=== PATIENT | male | born 1950 | race African-American/Black ===

== ENCOUNTER 2016-08-14 06:19 | Inpatient (IN) | payer BC ==
[~2016-08-14 06:19] MED LIST: Buffered Lidocaine 1% SYRIN* 3 ML/SYR SYRINGE INTRADERM ONE; Famotidine IV* 10 MG/ML 2 ML (20 mg) IV ONE; Famotidine IV* 10 MG/ML 2 ML (20 mg) ONE; Metoclopramide TAB* 10 MG ONE; Metoclopramide TAB* 10 MG PO ONE; ceFAZolin 2 GM PREMIX(*) 2 GM/50 ML BAG IVPB ONE
[2016-08-14] MEDS ORDERED: fentaNYL* 50 MCG/ML 2 ML VIAL (100 MCG VIAL) ONE ×2 (07:20→10:22)
[2016-08-14] MEDS ORDERED: Dexamethasone IV* 4 MG/ML 1 ML (4 MG) ONE (07:20)
[2016-08-14] MEDS ORDERED: Cisatracurium* 2 MG/ML MDV 5 ML ONE (07:20)
[2016-08-14] MEDS ORDERED: KETAMINE HCL* 50 MG/ML 10 ML VIAL ONE (07:20)
[2016-08-14] MEDS ORDERED: Ondansetron INJ* 2 MG/ML VIAL ONE (07:20)
[2016-08-14] MEDS ORDERED: Lidocaine 2% PF* 5 ML VIAL ONE (07:20)
[2016-08-14] MEDS ORDERED: Propofol* 10 MG/ML 20 ML BTL IV PUSH ONE (07:20)
[2016-08-14] MEDS ORDERED: Midazolam* 1 MG/ML 5 ML VIAL (5 MG) ONE (07:21)
[2016-08-14] MEDS ORDERED: Bacitracin IV* 50,000 UNITS INJ ONE (07:22)
[2016-08-14] MEDS ORDERED: Lidocain 1% EPI 1:100,000 * 30 ML MDV ONE (07:22)
[2016-08-14] MEDS ORDERED: Thrombin 5,000 UNITS* 1 APPLIC KIT - topical use - TOPICAL ONE (07:22)
[2016-08-14] MEDS ORDERED: Artificial Tear OPHTH.OINT* 3.5 GM ONE (07:24)
[2016-08-14] MEDS ORDERED: EPHEDrine (Pressors)* 50 MG/ML VIAL ONE (08:09)
[2016-08-14] MEDS ORDERED: Phenylephrine INJ* 10 MG/ML 1 ML VIAL (10 MG) ONE (08:14)
[2016-08-14] MEDS ORDERED: Acetaminophen IV 1GM/100ML * 100 ML IVPB ONE (08:49)
[2016-08-14] MEDS ORDERED: fentaNYL* 50 MCG/ML 2 ML VIAL (100 MCG VIAL) IV PRN (08:49)
[2016-08-14] MEDS ORDERED: HYDROmorphone* 1 MG/ML 1 ML SYR IV PRN (08:49)
[2016-08-14] MEDS ORDERED: Ondansetron INJ* 2 MG/ML VIAL IV PRN ×2 (08:49→09:13)
[2016-08-14] MEDS ORDERED: HYDROcodone/ACETAMIN 5-325 MG* 1 TAB PO PRN (09:13)
[2016-08-14] MEDS ORDERED: Magnesium Hydroxide LIQ* 30 ML UDC PO PRN (09:13)
[2016-08-14] MEDS ORDERED: Morphine INJ* 4 MG/ML 1 ML SYRINGE IV PRN (09:15)
[2016-08-14] MEDS ORDERED: Cyclobenzaprine TAB* 10 MG PO PRN (09:16)
[2016-08-14] MEDS ORDERED: Acetaminophen IV 1GM/100ML * 100 ML ONE (09:24)
[2016-08-14] MEDS: Losartan TAB* 25 MG PO SCH (12:40)
[2016-08-14] MEDS ORDERED: Acetaminophen TAB* 325 MG PO PRN (14:00)
[2016-08-14] MEDS: HYDROcodone/ACETAMIN 5-325 MG* 1 TAB PO PRN ×2 (14:22→20:45)
[2016-08-14] MEDS: CMC:Simvastatin TAB(NF) 10 MG TAB PO SCH (20:45)
[2016-08-15] MEDS: HYDROcodone/ACETAMIN 5-325 MG* 1 TAB PO PRN ×5 (02:11→21:32)
--- NOTE | 2016-08-15 07:54 | PN ---
Progress Note - Progress Note SOAP: Subjective: [This is a 66 year old male s/p posterior cervical decompression C3-7, POD #1. He states that he is feeling well although has incisional pain. Pre-operative symptoms are improving. He is eating and drinking without difficulty. He has been up out of bed to ambulate yesterday. Denies nausea and headache.] Objective: [ Vital Signs: Temp Pulse Resp BP Pulse Ox 98.2 F 70 16 120/69 98 08/15/16 04:08 08/15/16 04:08 08/15/16 04:08 08/15/16 04:08 08/15/16 04:08 General: Alert and oriented. No distress. Neuro: Motor and sensory intact. Incision: Intact with hal. No swelling. VINCENZO in place and draining. Drain output 08/14/16 08/14/16 08/14/16 11:00 15:15 19:00 Output, VINCENZO #1 10 80 50 08/14/16 08/15/16 08/15/16 22:40 02:11 05:24 Output, VINCENZO #1 20 5 20 ] Assessment: [Satisfactory post-op. VINCENZO drain requires further monitoring due to continued collection.] Plan: [1. Admit to inpatient for continued monitoring of VINCENZO output. 2. Continue pain management as needed. 3. Encourage ambulation throughout day.]
[2016-08-15] MEDS: Losartan TAB* 25 MG PO SCH (07:55)
[2016-08-15] MEDS: amLODIPine TAB* 5 MG PO SCH (07:55)
[2016-08-15] MEDS: Chlorthalidone TAB* 50 MG PO SCH (07:55)
[2016-08-15] MEDS: Metoprolol Succinate XL TAB* 50 MG PO SCH (07:56)
[2016-08-15] MEDS: CMC:Simvastatin TAB(NF) 10 MG TAB PO SCH (21:32)
[2016-08-16] MEDS: HYDROcodone/ACETAMIN 5-325 MG* 1 TAB PO PRN ×3 (01:32→09:34)
[2016-08-16 07:38] VITALS: BP 129/76
--- NOTE | 2016-08-16 09:17 | PN ---
Progress Note - Progress Note SOAP: Subjective: [This is a 66 year old male s/p posterior cervical decompression POD#2. He is feeling well this morning, complains of incisional neck pain and muscle tightness. He is eating and drinking without difficulty and ambulating independently. He denies headache, chest pain and nausea. ] Objective: [ Vital Signs: Temp Pulse Resp BP Pulse Ox 98.9 F 73 16 129/76 94 08/16/16 07:22 08/16/16 07:22 08/16/16 08:00 08/16/16 07:22 08/16/16 07:22 General: Alert and oriented. No distress. Neuro: Motor and sensory intact. Incision: Intact with hal. Muscle tightness surrounding incision. VINCENZO removed today. VINCENZO drain output 08/14/16 08/14/16 08/14/16 11:00 15:15 19:00 Output, VINCENZO #1 10 80 50 08/14/16 08/15/16 08/15/16 22:40 02:11 05:24 Output, VINCENZO #1 20 5 20 08/15/16 08/15/16 08/15/16 10:00 14:00 15:59 Output, VINCENZO #1 30 15 15 08/15/16 08/16/16 08/16/16 22:23 03:47 05:52 Output, VINCENZO #1 20 5 5 ] Assessment: [Satisfactory post-op. Pain is well controlled with oral pain medications. All questions and concerns addressed. ] Plan: [1. Discharge home today. 2. Discharge instructions including wound care and activity level discussed with the patient. ]
[2016-08-16] MEDS: Losartan TAB* 25 MG PO SCH (09:33)
[2016-08-16] MEDS: Chlorthalidone TAB* 50 MG PO SCH (09:33)
[2016-08-16] MEDS: Metoprolol Succinate XL TAB* 50 MG PO SCH (09:34)
[2016-08-16] MEDS: amLODIPine TAB* 5 MG PO SCH (09:34)
--- NOTE | 2016-08-17 14:29 | OP ---
DATE OF OPERATION: 08/14/16 - ROOM #347 DATE OF : 48 SURGEON: Prashant Little MD HAIR DRESSER: JAMAL Rivera ANESTHESIOLOGIST: Satnam Dai MD ANESTHESIA: General. PRE-OP DIAGNOSIS: Cervical spondylosis with myelopathy, C3-C7. POST-OP DIAGNOSIS: Cervical spondylosis with myelopathy, C3-C7. OPERATIVE PROCEDURE: Posterior cervical decompressive laminectomy, C3-C7. DESCRIPTION OF PROCEDURE: After satisfactory general anesthesia was obtained, the patient was placed on the operating table in a prone position with the chest supported on the chest rolls and the head maintained with slight neck flexion utilizing the Thompson headrest. The cervical region was then clipped, prepped and draped in a sterile manner for generous cervical exposure. The skin incision was outlined beginning at C2 and extended down to T1. This incision was infiltrated with 1% Xylocaine with epinephrine after which it was turned down sharply to the level of the cervical fascia. The fascia was divided along the spinous processes from C2 to C7 and the paraspinal musculature was stripped away from these posterior elements using the periosteal elevator and monopolar cautery. The prominent C2 spinous process was identified after which spinous processes of C3, C4. C5, C6 and the superior aspect of the spinous processes of C7 were removed with a Leksell rongeur. A decompression was then begun starting at the inferior aspect of the C3 lamina which was removed with Kerrison's rongeurs. This was carried superiorly until the entire posterior elements of C3 had been removed. A Midas Roscoe drill was then used to thin out the remaining portion of the base of the spinous process and lamina of C4 after which it was removed with the Kerrison as well. There was no remarked compromise especially out laterally by spondylosis. In a similar manner, the C5 and C6 posterior elements were removed as well as the most superior half of the C7 lamina. At the conclusion of the decompression, the dura was noted to be quite pulsatile. Hemostasis was obtained with temporary Gelfoam, after which Gelfoam was placed over the laminectomy defect. A drain was placed in the epidural space and tunneled out toward the left side. The fascia was then reapproximated with 0 Vicryl suture. The subcutaneous tissue closed with 3-0 Vicryl suture and the skin closed with skin clips. The estimated blood loss was less than 50 cc and final sponge, pad and needle counts were correct. The patient was taken to the recovery room, extubated and in stable condition. [id number]/[facility] #: [id number] CALLI
== END 2016-08-16 10:08 | disposition home or self-care (01) | DRG 310 ==
LOC: OR 06:19 → SSU 07:40 → OBSVTOIN 08-15 07:40
PROVIDERS: ADMIT Neurological Surgery; ATTEND Neurological Surgery
PROC: 00NW0ZZ Release Cervical Spinal Cord, Open Approach (ICD-10-PCS; principal; 2016-08-14 07:45)
DX: M47.12 Other spondylosis with myelopathy, cervical region (principal); I10 Essential (primary) hypertension; Z87.440 Personal history of urinary (tract) infections; E78.5 Hyperlipidemia, unspecified; M54.16 Radiculopathy, lumbar region
CPT/HCPCS: A9270-GY; J0690; J1100; J2250; J2405; J2704; J3010

== ENCOUNTER 2017-12-30 07:07 | Day surgery (SDC) | payer BC ==
[~2017-12-30 07:07] MED LIST changes: +Acetaminophen TAB* 325 MG PO PRN; +Buffered Lidocaine 0.9% SYRIN* 5 ML/SYR SYRINGE INTRADERM ONE; -Buffered Lidocaine 1% SYRIN* 3 ML/SYR SYRINGE INTRADERM ONE; -Famotidine IV* 10 MG/ML 2 ML (20 mg) IV ONE; -Famotidine IV* 10 MG/ML 2 ML (20 mg) ONE; -Metoclopramide TAB* 10 MG ONE; -Metoclopramide TAB* 10 MG PO ONE; -ceFAZolin 2 GM PREMIX(*) 2 GM/50 ML BAG IVPB ONE
[2017-12-30] MEDS ORDERED: Midazolam* 1 MG/ML 2 ML VIAL (2 MG) ONE (08:24)
[2017-12-30 09:39] VITALS: BP 138/75
[2017-12-30] MEDS ORDERED: Cyclopentolate 1% OPTH.SOL* 2 ML BTL ONE (14:41)
[2017-12-30] MEDS ORDERED: Povidone Iodine 5% OPTH* 30 ML BTL ONE (14:41)
[2017-12-30] MEDS ORDERED: acetaZOLAMIDE TAB* 250 MG ONE (14:41)
[2017-12-30] MEDS ORDERED: Ketorolac 0.5% OPHTH (NF) 0.5 % 5 ML BTL ONE (14:41)
[2017-12-30] MEDS ORDERED: Phenylephrine 2.5% OPTH.SOL* 2 ML BTL ONE (14:41)
[2017-12-30] MEDS ORDERED: Lidocaine 1%* 5 ML VIAL ONE (14:41)
[2017-12-30] MEDS ORDERED: Lidocaine 2% EPI 1:200000 MPF*10-20 ML VIAL ONE (14:41)
[2017-12-30] MEDS ORDERED: Proparacaine 0.5% OPHTH.SOL* 15 ML BTL ONE (14:41)
[2017-12-30] MEDS ORDERED: Neomycin/Polymy/Dex OPTH.SUSP* MAXITROL 0.1% 5 ML ONE (14:41)
--- NOTE | 2017-12-30 17:10 | OP ---
OPERATIVE NOTE: DATE OF OPERATION: 12/30/17 - [facility] DATE OF : 48 SURGEON: Ortiz Shields M.D. PREOPERATIVE DIAGNOSIS: Cataract, right eye. POSTOPERATIVE DIAGNOSIS: Cataract, right eye. OPERATIVE PROCEDURE: Extracapsular cataract extraction with intraocular lens implant right eye. PROCEDURE: The patient was brought to the operating room after being given 1/2 % Alcaine with epinephrine drops in the preoperative area. The eye was prepped and draped in the usual sterile fashion. Sterile drape and eyelid speculum were placed. Again, topical 1/2% Alcaine with epinephrine was given. A paracentesis incision was made at the 9 o'clock position with the No. 75 blade. Clear cornea incision 2.2 x 2.2-mm was created at the 12 o'clock position starting at the anterior limbus using the 2.2-mm keratome. The anterior chamber was irrigated with 0.4 mL of 1% non-preservative intracameral lidocaine and filled with DisCoVisc. A capsulorrhexis was completed using the cystotome and the Utrata forceps. Hydrodissection was performed with balanced salt solution. The lens nucleus was removed with the Phacoemulsification handpiece without incident. Cortex was removed with the irrigation-aspiration handpiece. The capsular bag was re-inflated using DisCoVisc and an SN60WF 21.0 inserted with the shooter. The irrigation- aspiration handpiece was used to remove all residual DisCoVisc. The eye was refilled with balanced salt solution and the wound checked and found to be watertight. Topical Maxitrol drops were given. [id number]/[facility] #: [id number] [facility]
== END 2017-12-30 10:04 | disposition home or self-care (01) ==
LOC: OREAST 07:07
PROVIDERS: ATTEND Specialist
DX: H25.811 Combined forms of age-related cataract, right eye (principal); H43.813 Vitreous degeneration, bilateral; I10 Essential (primary) hypertension; E78.00 Pure hypercholesterolemia, unspecified
CPT/HCPCS: A9270-GY; J2250; V2632

== ENCOUNTER 2018-01-06 06:53 | Day surgery (SDC) | payer BC ==
[2018-01-06] MEDS ORDERED: Midazolam* 1 MG/ML 2 ML VIAL (2 MG) ONE (08:18)
[2018-01-06] MEDS ORDERED: Phenylephrine 2.5% OPTH.SOL* 2 ML BTL ONE (08:19)
[2018-01-06] MEDS ORDERED: Lidocaine 1%* 5 ML VIAL ONE (08:19)
[2018-01-06] MEDS ORDERED: Povidone Iodine 5% OPTH* 30 ML BTL ONE (08:19)
[2018-01-06] MEDS ORDERED: acetaZOLAMIDE TAB* 250 MG ONE (08:19)
[2018-01-06] MEDS ORDERED: Proparacaine 0.5% OPHTH.SOL* 15 ML BTL ONE (08:19)
[2018-01-06] MEDS ORDERED: Lidocaine 2% EPI 1:200000 MPF*10-20 ML VIAL ONE (08:19)
[2018-01-06] MEDS ORDERED: Cyclopentolate 1% OPTH.SOL* 2 ML BTL ONE (08:19)
[2018-01-06] MEDS ORDERED: Ketorolac 0.5% OPHTH (NF) 0.5 % 5 ML BTL ONE (08:19)
[2018-01-06] MEDS ORDERED: Neomycin/Polymy/Dex OPTH.SUSP* MAXITROL 0.1% 5 ML ONE (08:19)
[2018-01-06 08:59] VITALS: BP 134/82
--- NOTE | 2018-01-06 11:19 | OP ---
OPERATIVE NOTE: DATE OF OPERATION: 01/06/18 DATE OF : 48 SURGEON: Ortiz Shields MD. PREOPERATIVE DIAGNOSIS: Cataract, left eye. POSTOPERATIVE DIAGNOSIS: Cataract, left eye. OPERATIVE PROCEDURE: Extracapsular cataract extraction with intraocular lens implant, left eye. PROCEDURE: The patient was brought to the operating room after being given 1/2% Alcaine with epineph rine drops in the preoperative area. The eye was prepped and draped in the usual sterile fashion. S terile drape and eyelid speculum were placed. Again, topical 1/2% Alcaine with epinephrine was given . A paracentesis incision was made at the 3 o'clock position with the No.75 blade. Clear cornea inc ision 2.2 x 2.2-mm was created at the 6 o'clock position starting at the anterior limbus using the 2. 2-mm keratome. The anterior chamber was irrigated with 0.4 mL of 1% non-preservative intracameral li docaine and filled with DisCoVisc. A capsulorrhexis was completed using the cystotome and the Utrata forceps. Hydrodissection was performed with balanced salt solution. The lens nucleus was removed wi th the Phacoemulsification handpiece without incident. Cortex was removed with the irrigation-aspira tion handpiece. The capsular bag was re-inflated using DisCoVisc and an SN60WF 21 implant was insert ed with the shooter. The irrigation-aspiration handpiece was used to remove all residual DisCoVisc. The eye was refilled with balanced salt solution and the wound checked and found to be watertight. Topical Maxitrol drops were given. [id number]/[facility] #: [id number]
== END 2018-01-06 09:11 | disposition home or self-care (01) ==
LOC: OREAST 06:53
PROVIDERS: ATTEND Specialist
DX: H25.812 Combined forms of age-related cataract, left eye (principal); H43.813 Vitreous degeneration, bilateral; I10 Essential (primary) hypertension; E78.00 Pure hypercholesterolemia, unspecified
CPT/HCPCS: A9270-GY; J2250; V2632